=== PATIENT | male | born 1970 | race Hispanic/Latino ===

== ENCOUNTER 2022-12-14 14:37 | Emergency (ER) | payer SELFPAY ==
--- NOTE | ~2022-12-14 | XR_ITS ---
EXAM: XR hand LT min 3V DATE: 12/14/2022 15:11 HISTORY: fall off ladder . COMPARISON: X-ray left forearm, same date. FINDINGS: Normal mineralization. No fracture or dislocation. Specifically, the distal radial ulnar j oint is aligned. No lytic or blastic lesion. Joint spaces are maintained. No erosion or periosteal ch france. Soft tissues within normal limits. Incidental note of partial visualization of a left distal ra dial fracture, please refer to the report on the left forearm for additional details. IMPRESSION: No acute osseous finding in the left hand. Reviewed, dictated and finalized at location K.
--- NOTE | ~2022-12-14 | XR_ITS ---
XR forearm LT 2V DATE: 12/14/2022 15:11 INDICATION: Fall off of ladder TECHNIQUE: AP and lateral views COMPARISON: None FINDINGS: There is a comminuted distal radial diametaphyseal fracture with approximately one cortical width medial and 2 cortical widths anterior displacement. Normal alignment at the elbow and wrist joints. No ulnar fracture is detected. IMPRESSION: Comminuted distal radial diametaphyseal fracture Reviewed, dictated and finalized at location B.
--- NOTE | 2022-12-14 14:39 | ED.UPPEXIN ---
HPI - Extremity Injury (Upper) General Chief Complaint: Extremity Injury, Upper Stated Complaint: left arm pain Time Seen by Provider: 12/14/22 14:39 Source: patient Mode of arrival: ambulatory Limitations: no limitations History of Present Illness HPI narrative: Mr. Reeves is a 55-year-old male patient presenting to clinic today with complaints of left arm, wrist, hand pain since Monday night. He reports he fell down approximately 10 stairs going into the basement landed on concrete. He does have some abrasions to his head but he denies having a headache, loss of consciousness, or any neck pain. He is mostly concerned about his left arm. Arm is swollen and painful and he states that he thinks it may be fractured. Related Data Home Medications Medication Instructions Recorded Confirmed No Home Medications 12/14/22 12/14/22 Allergies Allergy/AdvReac Type Severity Reaction Status Date / Time No Known Allergies Allergy Verified 12/14/22 14:51 Review of Systems Review of Systems: Pertinent positives per HPI. Patient denies any fever, chills, rash, headache, visual changes, dizziness, cough, runny nose, sore throat, shortness of breath, chest pain, palpitations, nausea, vomiting, diarrhea, constipation, abdominal pain, or any urinary issues. PMFSH Comments At the time of my signature, I reviewed and agree with the nursing past medical, surgical, social, and family history. There is no relevant family history pertinent to the patient complaint. Exam Narrative: General: Well-developed, well nourished, in no apparent distress Head: Normocephalic, atraumatic. Cardio: Regular rate and rhythm, s1 and s2 normal, no murmur appreciated. Resp: Clear to auscultation bilaterally, no rhonchi, rales, wheezing or rubs. Musculoskeletal: No deformity,tender to palpation over left forearm, wrist, and hand, redness and swelling noted over distal forearm, wrist, and hand, unable to make a tight fist due to swelling and pain, able to supinate and pronate left forearm, limited range of motion to the left wrist and fingers, muscle strength weaker in the left hand when compared to the right hand, peripheral pulse strong, no cyanosis, normal gait and station Course Course Emergency Course: Portions of this record may have been created with voice recognition software. Level of Care: Express Care Visit Vital Signs Vital signs: Vital Signs Temperature 36.6 C 12/14/22 14:51 Pulse Rate 103 H 12/14/22 14:51 Respiratory Rate 16 12/14/22 14:51 Blood Pressure 141/88 H 12/14/22 14:51 Pulse Oximetry 97 12/14/22 14:51 Oxygen Delivery Room Air 12/14/22 14:51 Temperature 36.6 C 12/14/22 14:51 Pulse Rate 103 H 12/14/22 14:51 Respiratory Rate 16 12/14/22 14:51 Blood Pressure 141/88 H 12/14/22 14:51 Pulse Oximetry 97 12/14/22 14:51 Oxygen Delivery Room Air 12/14/22 14:51 Vital signs reviewed MDM - Extremity Injury (Upper) MDM Narrative Medical decision making narrative: At the time of visit patient is resting comfortably on the exam table. X-ray of the left forearm, wrist, hand were performed. Patient has a comminuted distal radial diametaphyseal fracture with approximately 1 cortical with medial and 2 cortical with anterior displacement Differential Diagnosis Differential diagnosis: Likely sprain and strain of wrist, fracture of wrist and other (Radius fracture, hand sprain) Discharge Plan Discharge Clinical Impression: Distal radius fracture, right, Fall down stairs Patient Disposition: Home, Self-Care Condition: Stable Instructions: Antibiotic Form Additional Instructions: X-ray shows a displaced left distal radius fracture Were volar arm splint until seen by orthopedic provider May take Tylenol/Motrin as needed for pain Rest, ice, and elevate left arm You have an appointment with Dr. Munoz Prescriptions: No Action No Home Medications Follow-up/Referra
[2022-12-14 14:51] VITALS: BP 141/88; PULSE 103; RESP 16; TEMP 36.6; O2SAT 97
--- NOTE | 2022-12-14 15:57 | PC.NURSE ---
1541- licensing worker Nae [id number]; pt informed fx and splinting. how to care for splint and f/u. OCL, sling, and ice applied.
== END 2022-12-14 16:17 | disposition home or self-care (01) ==
LOC: EXPCOLL 14:43
PROVIDERS: Emergency Provider Nurse Practitioner Family
DX: S52.501A Unspecified fracture of the lower end of right radius, initial encounter for closed fracture (principal); W10.9XXA Fall (on) (from) unspecified stairs and steps, initial encounter
CPT/HCPCS: 29125; 73090; 73130; 99204; A4565; G0463

== ENCOUNTER 2022-12-19 09:30 | Emergency (ER) | payer SELFPAY ==
[2022-12-19 09:56] VITALS: BP 131/93; PULSE 76; RESP 12; TEMP 36.2; O2SAT 98
--- NOTE | 2022-12-19 10:26 | ED.UPPEXIN ---
HPI - Extremity Injury (Upper) General Chief Complaint: Extremity Injury, Upper Stated Complaint: Arm Pain Time Seen by Provider: 12/19/22 10:26 Source: patient Mode of arrival: ambulatory Limitations: no limitations History of Present Illness HPI narrative: 52-year-old male with known left distal radius fracture, presented to the [facility] reporting confusion about his talent sourcing specialist appointments. He is accompanied by family who states they are applying for financial assistance. They state they were contacted by someone who only spoke Macedonian from the hospital today, and they did not know where to go. They do not know why they are here at this time, but they came here. He has sling and left OCL in place. Denies new concerns or injury. Patient is Marshallese speaking. [employer] services utilized. Related Data Home Medications Medication Instructions Recorded Confirmed No Home Medications 12/14/22 12/19/22 Allergies Allergy/AdvReac Type Severity Reaction Status Date / Time No Known Allergies Allergy Verified 12/19/22 10:06 Review of Systems Review of Systems: CONSTITUTIONAL: Denies body aches, fever, chills EYES: Denies visual changes ENT: Denies rhinorrhea, congestion CARDIOVASCULAR: Denies chest pain, palpitations, or edema. RESPIRATORY: Denies cough or dyspnea. SKIN: Denies rash, itching, or wounds. MUSCULOSKELETAL: per HPI NEUROLOGIC: Denies headache, numbness, tingling, or weakness. All systems reviewed & are unremarkable except as noted in HPI and below PMFSH Past Medical History Medical History (Updated 12/19/22 @ 10:45 by Rani Jade, MALIA) No pertinent past medical history Comments At time of signature, I have reviewed and agree with nursing past medical, surgical, social and family history unless otherwise noted. Please see nursing chart for further information. There is no relevant family history pertinent to the presenting complaint Exam Narrative: GENERAL: Well-appearing, well-nourished, and in no acute distress. CHEST: Speaks in full sentences. No respiratory distress. HEART: Regular rate and rhythm. Normal and equal peripheral pulses. EXTREMITIES: Left arm in OCL and sling in place, skin warm, dry, pink. Capillary refill less than 3 seconds. SKIN: Warm, dry, no rash. NEURO: Alert and oriented x3. PSYCH: Normal mood and affect Course Course Emergency Course: Patient is aware of diagnosis, understands and agrees to treatment plan. Anticipatory guidance given. Patient agrees to follow-up as directed and is aware of reasons to seek care at the emergency department. Portions of this record may have been created with voice recognition software Level of Care: Express Care Visit Vital Signs Vital signs: Vital Signs Temperature 97.1 F L 12/19/22 09:56 Pulse Rate 76 12/19/22 09:56 Respiratory Rate 12 12/19/22 09:56 Blood Pressure 131/93 H 12/19/22 09:56 Pulse Oximetry 98 12/19/22 09:56 Oxygen Delivery Room Air 12/19/22 09:56 Temperature 97.1 F L 12/19/22 09:56 Pulse Rate 76 12/19/22 09:56 Respiratory Rate 12 12/19/22 09:56 Blood Pressure 131/93 H 12/19/22 09:56 Pulse Oximetry 98 12/19/22 09:56 Oxygen Delivery Room Air 12/19/22 09:56 Reviewed MDM - Extremity Injury (Upper) MDM Narrative Medical decision making narrative: Calls were placed to talent sourcing specialist and preop services. Using the pharmacognosist services, patient is advised to have preop testing, lab work, EKG etc. upon leaving the facility today. Spoke with Dr. Mckenzie's office, they are made aware. Patient is planned for surgery on Monday at noon, they are advised to be there at 10:00 a.m. v/u. Address provided. Differential Diagnosis Differential diagnosis: Likely fracture of wrist Discharge Plan Discharge Clinical Impression: Encounter for wellness examination Patient Disposition: Home, Self-Care Condition: Stable Instructions: Arm Fracture
== END 2022-12-19 11:27 | disposition home or self-care (01) ==
PROVIDERS: Emergency Provider Nurse Practitioner Family
DX: S52.502D Unspecified fracture of the lower end of left radius, subsequent encounter for closed fracture with routine healing (principal); X58.XXXD Exposure to other specified factors, subsequent encounter
CPT/HCPCS: 99211; G0463

== ENCOUNTER 2022-12-21 00:30 | Day surgery (SDC) | payer SELFPAY ==
--- NOTE | 2022-12-19 12:17 | P.HP_ITS ---
H&P: HPI History of Present Illness Date/Time: 12/19/22 12:17 Chief Complaint: 52-year-old male who presents today for ORIF of his left distal radius fracture. Patient fell on 12/11. He lost his balance falling down the basement stairs landing hard on the left distal radius. He did have immediate pain but did not go to the ER for a couple of days. Went to urgent care on 12/14. X- rays done showed a fracture of the distal radius which was comminuted. He was seen in the office on 12/15. After reviewing x-rays Dr. Mckenzie recommended ORIF of the fracture given the comminution and the displacement on the x-rays. Patient presents today for that. Review of Systems Review of Systems: All systems reviewed & are unremarkable except as noted in HPI and below PMFSH Past Medical History Medical History No pertinent past medical history Meds Home Medications and Allergies Home Medications Medication Instructions Recorded Confirmed Type No Home Medications 12/14/22 12/19/22 History Allergies Allergy/AdvReac Type Severity Reaction Status Date / Time No Known Allergies Allergy Verified 12/19/22 10:06 Exam Narrative: 52-year-old male alert pleasant. He is 5 ft 2 and 159 lb. Has some mild swelling in the distal forearm on the left. Mild tenderness over The distal radial ulnar joint. Moderate tenderness over the fracture the radius. He has intact light touch to all 5 digits. 2+ radial pulse. Skin is all int act. Resp: Auscultation: clear to auscultation bilaterally Cardio: Rate: regular rate Rhythm: regular rhythm Assessment and Plan Assessment and plan (1) Wrist fracture, left: Code(s): S62.102A - Fracture of unspecified carpal bone, left wrist, initial encounter for closed fracture Status: Acute Plan 52-year-old male who has an unstable distal radius fracture. Again it is recommended ORIF with plating. Surgical procedure as well as risks and complications were discussed in detail questions were answered and patient wishes to proceed. He will avoid aspirin ibuprofen products 1 week prior to surgery.
--- NOTE | 2022-12-19 13:32 | PC.NURSE ---
Report to the Outpatient Waiting Room, entrance under the green pavilion located off [facility], at time _1000 on date __12/21/22 . Planned Procedure Time: _1200 . Time changes happen often and if your time is changed the preop area will call you the afternoon before. - You and your visitor will be asked to self-screen and do not enter if you have any COVID symptoms. - Only one visitor is requested with a max of two and NO children visitors are allowed at this time. - The patient visitor may be requested to leave or wait in car when not with patient due to distancing restrictions. - A mask is optional within the hospital at this time. Patients may have clear liquids (water, carbonated beverages, clear teas, apple juice) until 3 hours prior to surgery with a maximum of 20 ounces. - No food from midnight until time of surgery - Infants may have breast milk until 4 hours before surgery, formula 6 hours prior to surgery. - Children will be allowed to drink immediately following surgery. If applicable, please bring a bottle or sippy cup to assist with drinking. Juice, water, soda, and popsicles are readily available. For infants on formula, please bring formula the day of surgery. Pacifiers are allowed. Take the following medications with a SIP of water the morning of surgery: ____NONE DO NOT STOP ANY OF YOUR OTHER PRESCRIPTION MEDICATIONS PRIOR TO SURGERY ?EXCEPT THE FOLLOWING Medications to discontinue per physician NONE Date to take last dose Please no make-up, nail turkish, hairspray, perfume, deodorant, or body powder the day of surgery. No jewelry (including any body piercings) or valuables the day of surgery, leave them at home. Please take a shower or bath the night before, or the morning of, surgery with an antibacterial soap. Wear comfortable, loose fitting clothing. Children are encouraged to wear pajamas. - Jewelry must be removed prior to entering the operating room. Rings and piercings that are not removed may be cut off. - The hospital will not accept responsibility for valuables. - Please leave all valuables, including medications, at home the day of surgery. If you are going home after surgery, a licensed tank truck driver must drive you home. - NO public transportation without another adult if you receive anesthesia. - We recommend that an adult stay with you for 24 hours following discharge. - We also recommend that you do not drive, make important decision, drink alcoholic beverages, or take any drugs that were not prescribed by your health care provider for at least 24 hours after your discharge time. Follow any additional instructions given to you from your surgeon. If you or anyone in your household have experienced Covid symptoms in the past week, please notify your surgeon or the nurse liaison at the phone number below for possible testing. VERBAL AND WRITTEN instructions given to ___PATIENT AND DAUGHTER SHAINA and asked if any additional questions and then verbalized understanding. [facility] BLACKING MACHINE OPERATOR CHARLENE # [id number] Patient advised to call surgeon office or pre surgery nurse liaison [phone] if any additional questions.
[2022-12-19 14:09] VITALS: BP 121/86; PULSE 76; RESP 18; TEMP 36.7; O2SAT 98; BMI 26.9
[2022-12-21] VITALS (9 sets, daily range): BP systolic 133–155; BP diastolic 75–98; PULSE 71–85; RESP 10–20; TEMP 36.1–36.2; O2SAT 95–100
--- NOTE | ~2022-12-21 | XR_ITS ---
EXAMINATION: XR surgery orthopedic DATE: 12/21/2022 15:15 INDICATION: Left radius fracture. TECHNIQUE: 8 intraoperative fluoroscopic views of left forearm were obtained. I was not present. Fluo roscopy exposure time was 1 minute 46 seconds. COMPARISON: Left arm radiograph 12/14/2022 FINDINGS: There is a comminuted fracture of distal radial metadiaphysis. The main distal fracture fra gment demonstrates near-anatomic alignment status post open reduction internal fixation with volar pl ate and screws and multiple interfragmentary screws. IMPRESSION: 1. Comminuted fracture of distal radial metadiaphysis status post open reduction internal fixation. Reviewed, dictated and finalized at location A. IMPRESSION: 1. Comminuted fracture of distal radial metadiaphysis status post open reductio n internal fixation.
--- NOTE | 2022-12-21 10:23 | SUR.PREOP ---
use of stratus sole painter for pt instructions. with family at side.
[2022-12-21] MEDS: ACETAMINOPHEN 500 MG TABLET 1000 MG PO (10:55)
[2022-12-21] MEDS: LACTATED RINGERS 1,000 ML 30 ML IV CONT ×2 (10:55→15:53)
[2022-12-21] MEDS: KETOROLAC 15 MG/ML VIAL (*BKC) IV PUSH ×2 (10:58→15:34)
--- NOTE | 2022-12-21 11:07 | SUR.PREOP ---
1035 use of ming virgensenior technical writereva #[id number]
--- NOTE | 2022-12-21 11:17 | SUR.PREOP ---
dr villalobos asked to remove splint left arm ,and shave arm.will do scrub in or.
--- NOTE | 2022-12-21 11:34 | WPDHPUPDATE1 ---
History and Physical Update Update Date/Time: 12/21/22 11:34 History and Physical has been reviewed, including an updated exam of the patient. There are NO changes in the patient's condition. Risks, benefits, and alternatives have been discussed and questions answered. Patient agrees to proceed with procedure.
[2022-12-21] MEDS: ceFAZolin 2 GM/D5W 50 ML 2 GM/50 ML BAG IVPB (12:10)
[2022-12-21] MEDS: ceFAZolin SODIUM 1 GM VIAL (13:14)
--- NOTE | 2022-12-21 15:38 | W.PM.PROC2 ---
Procedure Note - Detailed Date of Procedure 12/21/22 Pre-op Diagnosis Comminuted left distal radius shaft fracture,galeazzi fracture Post-op Diagnosis Same Procedure Performed Open reduction internal fixation left distal radial shaft fracture with extra long DVR Crosslock Biomet plate Surgeon Mustapha Mckenzie MD Platform Material Handler Manager [facility] Anesthesia General Description of Procedure Patient was brought to the operating room and general anesthesia anesthesia was administered. Received 2 g of Ancef and weight based vancomycin preoperatively. Left arm was scrubbed with the chlorhexidine cloth occluding the hand digits. The left forearm and hand were prepped with DuraPrep and the arm draped fashion. Limb was exsanguinated tourniquet elevated to 200 mmHg. A 6 in longitudinal incision was made from the flexion crease of the list is over flexor carpi radialis extending proximally in line with the radial shaft. The fascia over the flexor carpi radialis was exposed and longitudinally incised. The floor of the flexor carpi radialis sheath was incised. The arm was pronated to neutral and origin of the pronator quadratus elevated off radial margin of the volar surface of the radius distally. The flexor pollicis longus was elevated from the radial margin of the radial shaft down flexor digitorum superficialis and the volar surface the shaft was exposed with subperiosteal dissection and tissues retracted ulnarly. Fracture was severely comminuted with segmental comminution large volar radial butterfly fragment was anatomically reduced with a bone clamp and stabilized to the ulnar cortex of the distal fragment with 2 2.0 mini fragment screws placed from radial to ulnar in a lag fashion through gliding hole. Excellent purchase and interfragmentary compression was achieved. At this point we applied traction 15 lb to the fingers. We were able to achieve anatomic reduction between the butterfly fragment and the proximal shaft fragment. This was an open long oblique fracture plane and we were able to stabilize this fracture with another 2.0 mini fragment screw through a gliding hole placed from radial to ulnar. We angled this distally in order to miss the comminution of the ulnar edge of the shaft fragment and we were successful and this also gave excellent interfragmentary compression and held the fracture is aligned anatomically and the reduction clamp was removed. We put the tourniquet down at 30 minutes and hemostasis was achieved. We then looked at the long DVR cross lock plate that is 85 mm in length and we positioned this on the fracture and unfortunately proximally this extended to the proximal extent of the ulnar margin comminution in the proximal shaft fragment and would of been there for inadequate. We then opened the extra long 125 mm DVR cross lock plate and we extended the incision proximally another inch and the plate was positioned on the volar surface of the distal radius. A guidewire was inserted through the plate into the distal radius after carefully positioning this so the distal head of the plate was perfectly centered on the distal radius. His bones were on the smaller size and this was the standard with head and it fit without extending over the edge of the distal radius either ulnarly or radially. A guide pin was inserted so it was about 3 mm proximal to the subchondral bone plate. We then positioned the proximal into the plate to center it optimally on the distal radial shaft and it was stabilized there with a guide pin as well. The built-in curvature of the plate was very close to perfectly matching his curvature. The plate sat flush on the bone and required no additional contouring. We placed a 3.5 locking screw through 1 of the oval holes at about the junction of proximal 2/ 5ths and distal 3 /5ths the plate to make sure the plate was properly compressed to the bone. We then proceeded to place 2.7 mm locking screws in the distal head portion of the plate ke
--- NOTE | 2022-12-21 16:29 | SUR.PHASEI ---
1627: Simple mask removed.
--- NOTE | 2022-12-22 08:39 | SUR.PHASEII ---
I SPOKE TO OFFICE AND THEY STATED THEY WILL CONTACT PATIENT WITH [employer] WORK[employer] TO MAKE FOLLOW UP APPOINTMENT
== END 2022-12-21 17:50 | disposition home or self-care (01) ==
PROVIDERS: Visit Provider Orthopaedic Surgery
PROC: (CPT 25575; principal; 2022-12-21 12:00)
DX: S52.372A Galeazzi's fracture of left radius, initial encounter for closed fracture (principal); W10.9XXA Fall (on) (from) unspecified stairs and steps, initial encounter
CPT/HCPCS: 25526; 99199; A4565; A9270; C1713; J0690; J1100; J1885; J2250; J2270; J2405; J2704; J3010; J3370; J7120

== ENCOUNTER 2023-03-29 14:06 | Outpatient (CLI) | payer MEDICAID, SELFPAY ==
--- NOTE | ~2023-03-29 | XR_ITS ---
EXAMINATION: XR lg joint inject/asp w image DATE: 03/29/2023 14:52 INDICATION: Frozen left shoulder. TECHNIQUE: A time-out was performed to verify the patient's name, date of , and procedure to b e performed. The procedure was discussed with the patient. Risks discussed included bleeding and infe ction. The patient understood the risks and agreed to proceed. The skin overlying the left glenohume ral joint was prepped and draped in usual sterile fashion. Anesthetic was administered with 1% lidoc irene subcutaneously. A 22 G needle was advanced under fluoroscopic guidance into the joint. Subsequ ently, injectate consisting of 4 mL 1% lidocaine and 1 mL 80 mg/mL Depo-Medrol was instilled. The ne edle was removed and the entry site was cleaned and dressed. There were no immediate complications. Fluoroscopy exposure time was 0.1 minutes. The total number of images was 1. FINDINGS: Real-time fluoroscopy demonstrates the needle in the left glenohumeral joint. IMPRESSION: 1. Fluoroscopy guided left glenohumeral joint injection of local anesthetic and steroid. Reviewed, dictated and finalized at location A.
== END 2023-03-29 14:07 | disposition home or self-care (01) ==
LOC: ANHIMG 14:13
PROVIDERS: Visit Provider Orthopaedic Surgery
DX: M75.02 Adhesive capsulitis of left shoulder (principal)
CPT/HCPCS: 20610; 77002; J1040